=== PATIENT | male | born 1990 | race Hispanic/Latino ===

== ENCOUNTER 2021-01-08 15:24 | Inpatient (IN) | payer OTHER ==
[~2021-01-08] VITALS: Ht 182.9 cm; Wt 159.0 kg
[~2021-01-08 15:24] MED LIST: CLINDAMYCIN300 MG PO; DICLOXACILL250 MG PO; HYDROXYZ HCL25 MG PO; MEDDOSEPAK OR
--- NOTE | 2021-01-08 16:00 | NUR ---
PATIENT IN ROOM AWAITNG LAB AND RADIOLOGY RESULTS
[2021-01-08 16:22] LABS: HEMATOCRIT 47.4 % (39.0-50.0); HEMOGLOBIN 14.8 g/dl (14.0-18.0); IMMATURE GRANULOCYTES 0.4 % (0.0-5.0); MEAN CELL VOLUME 84.2 fL CALC (80.0-100.0); MEAN CORPUSCULAR HGB 26.3 pG CALC (26.0-32.0); MEAN CORPUSCULAR HGB CONC 31.2 g/dL CAL (32.0-36.0); NEUT# 3.45 thou/uL (1.82-7.42); RED BLOOD COUNT 5.63 mill/uL (4.70-6.10); RED CELL DISTRI WIDTH 13.3 % (11.5-15.5)
[2021-01-08 16:37] LABS: ALBUMIN 4.5 g/dL (3.2-5.0); ALKALINE PHOSPHATASE 64 u/l (38-126); ANION GAP 12 (6-22 (CALC)); BILIRUBIN, TOTAL 0.7 mg/dL (0.0-1.4); BUN 9 mg/dL (9-20); BUN/CREATININE RATIO 12 (12-20 (CALC)); CARBON DIOXIDE 29 mmol/l (22-30); CHLORIDE 97 mmol/l (95-108); CREATININE 0.7 mg/dL (0.7-1.3); GFR > 60 ML/MIN (>=60 (CALC)); GFR FOR AFR.AMER. > 60 ML/MIN (>=60 (CALC)); LIPASE 28 u/l (23-300); POTASSIUM 4.1 mmol/l (3.5-5.1); SGOT/AST 47 u/l (17-59); SODIUM 134 mmol/l (137-146)
[2021-01-08 16:40] LABS: D-DIMER 0.44 mg/L (0.19-0.60)
[2021-01-08 16:43] LABS: ACT PARTIAL THROMBO TIME 29.2 SECONDS (20.0-32.5); INTERNATIONAL NORMALIZED RATIO 1.1 RATIO (0.7-1.3); PROTHROMBIN TIME 10.9 SECONDS (9.0-12.5)
--- NOTE | 2021-01-08 17:00 | NUR ---
Reassessment of patient completed. No distress noted.
--- NOTE | 2021-01-08 17:40 | NUR ---
PATIENT RESTING DENIES ANY NEEDS CURRENTLY
--- NOTE | 2021-01-08 18:16 | NUR ---
[facility]
--- NOTE | 2021-01-08 18:17 | NUR ---
REPORT REC FROM Gertrudis MUIR RN
--- NOTE | 2021-01-08 18:20 | NUR ---
PATIENT TRANSPORTED TO [facility] VIA STRETCHER
[2021-01-08 18:22] VITALS: BP 123/73
--- NOTE | 2021-01-08 18:22 | NUR ---
PT ARRIVED VIA STRETCHER WITH O2 VIA NC @2L. A&O X4. CURRENTLY 95%, O2 TITRATED TO 1L. WILL CONTINUE TO CLOSELY MONITOR FOR OXYGEN TITRATION NEEDS. CLEAR DIMINSHED BREATH SOUNDS. IS DEVICE TO BE GIVEN TO PT, EDUCATION GIVEN ON ITS IMPORTANCE. ORIENTED PT TO ROOM . CALL LIGHT WITHIN REACH.
--- NOTE | 2021-01-08 20:00 | NUR ---
PT ASSESSMENT AND ADMISSION COMPLETED WITH PT, SEE DOCUMENTATION. PT RESTING QUITLY AT THIS TIME IN BED. PT REMAINS ON ISOLATION DUE TO COVID POSITIVE STATUS. NO COMPLICATIONS NOTED, NO COMPLAINTS VOICED. WILL MONITOR
[2021-01-09] VITALS: BP 139/71
--- NOTE | 2021-01-09 | NUR ---
PT RESTING QUIETLY AT THIS TIME. NO COMPLAINTS VOICED. SAFETY PRECAUTIONS IN PLACE, WILL CONTINUE TO MONITOR
[2021-01-09 00:39] LABS: URINE BILIRUBIN - DIPSTICK NEGATIVE (NEGATIVE); URINE BLOOD DIPSTICK NEGATIVE (NEGATIVE); URINE COLOR YELLOW; URINE GLUCOSE - DIPSTICK NEGATIVE (NEGATIVE); URINE KETONE NEGATIVE (NEGATIVE); URINE LEUK ESTERASE NEGATIVE (NEGATIVE); URINE PROTEIN - DIPSTICK 30 mg/dL (NEG-TRACE); URINE SPECIFIC GRAVITY 1.025
[2021-01-09 00:48] LABS: URINE NITRITE - DIPSTICK NEGATIVE (Negative)
[2021-01-09 00:51] LABS: URINE BACTERIA FEW hpf; URINE EPITHELIAL CELLS FEW EPI/hpf (0-FEW); URINE MUCUS MODERATE hpf (NONE-FEW); URINE RBC 0-2 RBC/hpf (0-5)
--- NOTE | 2021-01-09 03:49 | NUR ---
PT RESTING IN HIS BED WHILE ON HIS CELL PHONE. BREATHING EVEN AND UNLABORED. NO S/S OF DISTRESS NOTED. NO COMPLAINTS VOICED. CONTINUES TO DENY ANY PAIN. SAFETY PRECAUTIONS IN PLACE. BED IN LOWEST POSITION, CALL LIGHT WITHIN REACH. WILL MONITOR
[2021-01-09 04:00] VITALS: BP 114/60
[2021-01-09 05:46] LABS: HEMATOCRIT 47.4 % (39.0-50.0); HEMOGLOBIN 14.6 g/dl (14.0-18.0); IMMATURE GRANULOCYTES 0.3 % (0.0-5.0); MEAN CELL VOLUME 85.1 fL CALC (80.0-100.0); MEAN CORPUSCULAR HGB 26.2 pG CALC (26.0-32.0); MEAN CORPUSCULAR HGB CONC 30.8 g/dL CAL (32.0-36.0); NEUT# 1.89 thou/uL (1.82-7.42); RED BLOOD COUNT 5.57 mill/uL (4.70-6.10); RED CELL DISTRI WIDTH 13.3 % (11.5-15.5)
[2021-01-09 06:07] LABS: ANION GAP 15 (6-22 (CALC)); BUN 12 mg/dL (9-20); BUN/CREATININE RATIO 22 (12-20 (CALC)); C-REACTIVE PROTEIN 6.6 mg/dL (0-0.9); CARBON DIOXIDE 25 mmol/l (22-30); CHLORIDE 100 mmol/l (95-108); CREATININE 0.6 mg/dL (0.7-1.3); GFR > 60 ML/MIN (>=60 (CALC)); GFR FOR AFR.AMER. > 60 ML/MIN (>=60 (CALC)); SODIUM 135 mmol/l (137-146)
--- NOTE | 2021-01-09 07:20 | NUR ---
REPORT RECEIVED FROM CLIFF COTTRELL. PT SITTING UP IN BEDSIDE CHAIR; ALERT AND ORIENTED X 3. DENIES PAIN. RESPIRATIONS EVEN AND UNLABORED ON OXYGEN 1L VIA NC; REPORTS EXERTIONAL SOB; SPO2 92% AT THIS TIME; LUNGS ARE VERY DIMINISHED. PT REPORTS THAT HE FEELS BETTER TODAY AND WOKE UP WITH MORE ENERGY THAN YESTERDAY. TELE ON. IV SITE APPEARS HEALTHY AND FLUSHES. POC REVIEWED; PT ENCOURAGED TO VERBALIZE CONCERNS. STATES UNDERSTANDING. SAFETY MEASURES IN PLACE. CALL LIGHT WITHIN REACH.
[2021-01-09 08:01] VITALS: BP 137/83
[2021-01-09 10:52] VITALS: BP 125/81
--- NOTE | 2021-01-09 10:52 | NUR ---
PT EDUCATED ON NEW MEDICATIONS INCLUDING ROCEPHIN, ZITHROMAX, DECADRON, LOVENOX, AND ROBITSSIN; STATES UNDERSTANDING. REMAINS ON 1L; SPO2 DECREASES TO 87% WHEN LAYING; INCREASED BACK TO 93% WHEN ENCOURAGED TO SIT UP AND COUGH. WILL CONTINUE TO MONITOR.
--- NOTE | 2021-01-09 12:28 | NUR ---
TELEMETRY REMOVED; ORDER RECEIVED TO DISCONTINUE. PT WAS SINUS RHYTHM SO FAR THIS SHIFT.
[2021-01-09 14:53] VITALS: BP 128/79
--- NOTE | 2021-01-09 15:53 | NUR ---
PT RESTING IN BED SEMI FOWLERS; ALERT AND ORIENTED. NO REQUESTS OR CONCERNS AT THIS TIME. ENCOURAGED USE OF INCENTIVE SPIROMETER. CALL LIGHT WITHIN REACH.
[2021-01-09 19:14] VITALS: BP 122/76
--- NOTE | 2021-01-10 00:51 | NUR ---
PATIENT RESTING IN BED FLAT WITH EYES CLOSED. NO COMPLAINTS VERBALIZED. CONTINUES ON AIRBORN/CONTACT PRECAUTIONS FOR +COVID-19. BED IN LOW POSITION. CALL LIGHT WITHIN REACH.
[2021-01-10 05:19] VITALS: BP 138/66
--- NOTE | 2021-01-10 06:33 | NUR ---
PATIENT HAD FEVER THIS A.M. 100.1. OTTO AMBROSIO NOTIFIED. NEW ORDERS RECEIVED. TYLENOL 650 MG PO GIVEN.
[2021-01-10 06:48] LABS: HEMATOCRIT 47.9 % (39.0-50.0); HEMOGLOBIN 14.7 g/dl (14.0-18.0); MEAN CELL VOLUME 85.4 fL CALC (80.0-100.0); MEAN CORPUSCULAR HGB 26.2 pG CALC (26.0-32.0); MEAN CORPUSCULAR HGB CONC 30.7 g/dL CAL (32.0-36.0); RED BLOOD COUNT 5.61 mill/uL (4.70-6.10); RED CELL DISTRI WIDTH 13.4 % (11.5-15.5)
[2021-01-10 07:15] LABS: ANION GAP 12 (6-22 (CALC)); BUN 13 mg/dL (9-20); BUN/CREATININE RATIO 20 (12-20 (CALC)); CARBON DIOXIDE 28 mmol/l (22-30); CHLORIDE 98 mmol/l (95-108); CREATININE 0.6 mg/dL (0.7-1.3); GFR > 60 ML/MIN (>=60 (CALC)); GFR FOR AFR.AMER. > 60 ML/MIN (>=60 (CALC)); MAGNESIUM 2.1 mg/dL (1.6-2.3); POTASSIUM 4.4 mmol/l (3.5-5.1); SODIUM 134 mmol/l (137-146)
--- NOTE | 2021-01-10 07:25 | NUR ---
REPORT RECEIVED FROM OTTONIEL DAILEY. PT RESTING IN BED SEMI FOWLERS WITH EYES CLOSED AND NO SIGNS OF DISTRESS; AWAKENS TO VERBAL STIMULI; DROWSY AND ORIENTED X 3. DENIES PAIN. RESPIRATIONS EVEN AND UNLABORED ON OXYGEN 1L VIA NC; SPO2 92%; LUNGS DIMINISHED. TEMPERATURE 100.1; ROOM IS WARM, BLANKET REMOVED. SCHEDULED ROBITUSSIN HELD DUE TO SLEEPING AND NO COUGH. POC REVIEWED; PT ENCOURAGED TO VERBALIZE CONCERNS. STATES UNDERSTANDING. SAFETY MEASURES IN PLACE. CALL LIGHT WITHIN REACH.
[2021-01-10 07:28] VITALS: BP 128/74
--- NOTE | 2021-01-10 11:56 | NUR ---
PT CONTINUES TO REST IN BED; STATES THAT HE DIDNT SLEEP WELL LAST NIGHT AND IS MORE TIRED TODAY. SKIN IS WARM AND MOIST; TEMP 98.8; ROOM COOLED MUCH POSSIBLE BUT REMAINS WARM; FAN PROVIDED. SPO2 91% ON 1L VIA NC; RESPIRATIONS EVEN AND UNLABORED. INDEPENDENT IN ROOM. CALL LIGHT WITHIN REACH.
--- NOTE | 2021-01-10 12:34 | NUR ---
PLACED CALL LIGHT TO INFORM NURSE OF NOSE BLOOD; SCANT AMOUNT OF BRIGHT RED BLOOD RIGHT RIGHT NARE; COOL CLOTH PROVIDED AND BLEED QUICKLY RESOLVED. PT REPORTS THAT HE GETS NOSE BLEEDS OCCAIONALLY. , TAJ, UPDATED OVER TELEPHONE.
[2021-01-10 15:26] VITALS: BP 140/89
--- NOTE | 2021-01-10 17:28 | NUR ---
SOB WITH EXERTION OF SHOWER; SPO2 DECREASED TO 85%; OXYGEN TITRATED UP TO 2L VIA NC. ZITHROMAX NOW INFUSING. PT ENCOURAGED TO USE INCENTIVE SPIROMETER; DEMONSTRATES UNDERSTANDING OF USE. WILL CONTINUE TO MONITOR.
[2021-01-10 19:38] VITALS: BP 133/70
--- NOTE | 2021-01-10 20:00 | NUR ---
PT SITTING UP DANGLING LEGS AND WATCHING TV, EXPERIENCING INCREASED COUGHING. RISK ASSESSMENT CONSULTANT INFORMED NURSE OF SLIGHT FEVER. PT DID NOT EAT DINNER DUE TO NOT FEELING WELL AND INCREASED COUGHING. ENCOURAGED FLUIDS. WILL ADMINISTER TYLENOL FOR FEVER AND EDUCATED PT ABOUT USE OF ABUTEROL INHALER WHEN SOB. WILL CONITNUE TO MONITOR. BELONGINGS AND CALL LIGHT WITHIN REACH.
--- NOTE | 2021-01-11 | NUR ---
PT RESTING WITH EYES CLOSED WITHOUT S/S OF DISTRESS. PT'S BROUGHT PT SOME HOT TEA EARLIER. PT SEEMS TO BE DOING BETTER AFTER ADMINISTRATION OF ROBITUSSIN AND INHALER. WILL CONTINUE TO MONITOR. CALL LIGHT AND PT BELONGINGS WITHIN REACH.
[2021-01-11 04:00] VITALS: BP 133/82
--- NOTE | 2021-01-11 04:00 | NUR ---
COMMERCIAL BAKER HELPER ASSESSED VITALS AND PT O2 WAS VERY LOW AND TOOK SEVERAL MINUTES TO RAISE AFTER INCREASING OXYGEN FROM 2L TO 4L. NURSE WENT TO ASSESS PT A SHORT TIME LATER AND PT IS LAYING SIDE PRONE AND HIS O2 HAD DECREASED AGAIN TO 82%, INCREASED O2 TO 5L AND CONTACTED RT FOR EVALUATION. PT ALSO HAS BEEN EXPERIENCING NOSE BLEEDS WHICH COULD POSSIBLY BENEFIT FROM HUMIDIFIED AIR. WILL CONTINUE TO MONITOR. ENCOURAGING INCENTIVE SPIROMETER AND ABUTEROL INHALER.
--- NOTE | 2021-01-11 04:00 | NUR ---
PT SLEEPING WITHOUT S/S OF DISCOMFORT. CALL LIGHT AND BELONGINGS WITHIN REACH. WILL CONTINUE TO MONITOR.
[2021-01-11 05:39] LABS: HEMATOCRIT 46.6 % (39.0-50.0); HEMOGLOBIN 14.1 g/dl (14.0-18.0); IMMATURE GRANULOCYTES 0.6 % (0.0-5.0); MEAN CELL VOLUME 85.2 fL CALC (80.0-100.0); MEAN CORPUSCULAR HGB 25.8 pG CALC (26.0-32.0); MEAN CORPUSCULAR HGB CONC 30.3 g/dL CAL (32.0-36.0); NEUT# 8.01 thou/uL (1.82-7.42); RED BLOOD COUNT 5.47 mill/uL (4.70-6.10); RED CELL DISTRI WIDTH 13.4 % (11.5-15.5)
--- NOTE | 2021-01-11 06:00 | NUR ---
PT DOING MUCH BETTER AFTER INCREASED O2 AND HUMIDIFICATION. PT MAY HAVE UNDERLYING SLEEP APNEA HIS O2 LEVELS DROP WHILE SLEEPING. CALL LIGHT AND BELONGINGS WITHIN REACH.
[2021-01-11 06:03] LABS: ALKALINE PHOSPHATASE 49 u/l (38-126); ANION GAP 14 (6-22 (CALC)); BILIRUBIN, TOTAL 0.8 mg/dL (0.0-1.4); BUN 12 mg/dL (9-20); BUN/CREATININE RATIO 18 (12-20 (CALC)); CARBON DIOXIDE 29 mmol/l (22-30); CHLORIDE 96 mmol/l (95-108); CREATININE 0.7 mg/dL (0.7-1.3); GFR > 60 ML/MIN (>=60 (CALC)); GFR FOR AFR.AMER. > 60 ML/MIN (>=60 (CALC)); POTASSIUM 4.1 mmol/l (3.5-5.1); SGOT/AST 35 u/l (17-59); SODIUM 134 mmol/l (137-146); TOTAL PROTEIN 7.7 g/dL (6.3-8.2)
[2021-01-11 06:19] LABS: C-REACTIVE PROTEIN 14.8 mg/dL (0-0.9)
--- NOTE | 2021-01-11 06:55 | NUR ---
REPORT RECEIVED FROM OTTONIEL SALINAS
--- NOTE | 2021-01-11 08:10 | NUR ---
PT RESTING IN RECLINER,A&O X3;VS OBTAINED AND ASSESSMENT COMPLETED;PT DENIES ANY CURRENT PAIN OR DISCOMFORTS,PAIN SCALE AND REPORTING EDUCATED;RESPIRATIONS SHALLOW ON O2 @ 5L VIA NC,DIMINISHED LUNG SOUNDS NOTED;ABDOMEN DISTENDED/SOFT ON PALPATION AND ACTIVE IN ALL 4 QUADRANTS;WEAK PEDAL PULSES;SKIN INTACT;#20G TO RAC FLUSHED AND PATENT, ABX STARTED AT THIS TIME PER ORDER;PT REMAINS IN AIR/CONTACT PRECAUTIONS DUE TO COVID19 DX;PT DENIES ANY ADDITIONAL NEEDS AT THIS TIME;ENCOURAGED TO CALL FOR ASSISTANCE IF NEEDED;FALL PRECAUTIONS IN PLACE WITH CALL LIGHT IN REACH;WILL CONTINUE TO MONITOR
[2021-01-11 08:20] VITALS: BP 117/79
--- NOTE | 2021-01-11 11:30 | NUR ---
PT RESTING IN SEMI FOWLERS POSITION, ENCOURAGED TO LAY PRONE AT THIS TIME;RESPIRATIONS SHALLOW ON O2 @ 5L VIA NC, O2 SATS 92%;PT DENIES ANY CURRENT PAIN OR DISCOMFORTS;IV SITE PATENT;PT ENCOURAGED TO CALL FOR ASSISTANCE IF NEEDED;CALL LIGHT IN REACH;WILL CONTINUE TO MONITOR
--- NOTE | 2021-01-11 11:39 | NUR ---
AT BEDSIDE DISCUSSING POC.
[2021-01-11 15:00] VITALS: BP 146/85
--- NOTE | 2021-01-11 15:50 | NUR ---
PT RESTING IN SEMI FOWLERS POSITION;RESPIRATIONS SHALLOW ON O2 @ 5L VIA NC;PT DENIES ANY CURRENT PAIN OR DISCOMFORTS;IV SITE TO RAC PATENT;PT ENCOURAGED TO CALL FOR ASSISTANCE IF NEEDED;CALL LIGHT IN REACH;WILL CONTINUE TO MONITOR
[2021-01-11 20:04] VITALS: BP 127/73
--- NOTE | 2021-01-11 22:43 | NUR ---
PATIENT CURRENTLY RESTING WITH EYES CLOSED. RESPIRATIONS UNLABORED ON 5L VIA N/C. DENIES PAIN. MEDICATION COMPLIANT. BED IN LOW POSITION. CALL LIGHT WITHINR REACH.
[2021-01-12 04:09] VITALS: BP 103/53
[2021-01-12 05:06] LABS: HEMATOCRIT 46.9 % (39.0-50.0); HEMOGLOBIN 14.3 g/dl (14.0-18.0); IMMATURE GRANULOCYTES 1.6 % (0.0-5.0); MEAN CELL VOLUME 85.7 fL CALC (80.0-100.0); MEAN CORPUSCULAR HGB 26.1 pG CALC (26.0-32.0); MEAN CORPUSCULAR HGB CONC 30.5 g/dL CAL (32.0-36.0); NEUT# 5.58 thou/uL (1.82-7.42); RED BLOOD COUNT 5.47 mill/uL (4.70-6.10); RED CELL DISTRI WIDTH 13.7 % (11.5-15.5)
[2021-01-12 05:26] LABS: ALBUMIN 3.7 g/dL (3.2-5.0); ALKALINE PHOSPHATASE 43 u/l (38-126); ANION GAP 13 (6-22 (CALC)); BILIRUBIN, TOTAL 0.7 mg/dL (0.0-1.4); BUN 15 mg/dL (9-20); BUN/CREATININE RATIO 24 (12-20 (CALC)); CARBON DIOXIDE 26 mmol/l (22-30); CHLORIDE 100 mmol/l (95-108); CREATININE 0.6 mg/dL (0.7-1.3); GFR > 60 ML/MIN (>=60 (CALC)); GFR FOR AFR.AMER. > 60 ML/MIN (>=60 (CALC)); POTASSIUM 4.4 mmol/l (3.5-5.1); SGOT/AST 31 u/l (17-59); SODIUM 135 mmol/l (137-146); TOTAL PROTEIN 7.4 g/dL (6.3-8.2)
--- NOTE | 2021-01-12 07:00 | NUR ---
PT REPORT RECEIVED FROM NIGHT NURSEASIM.
[2021-01-12 08:00] VITALS: BP 142/73
--- NOTE | 2021-01-12 08:00 | NUR ---
PT VITALS WERE OBTAINED;PT O2 SAT WAS AT 86% ON O2 @5L VIA NC WITH HUMIDIFIED AIR;PT HAD JUST BEEN UP AND AMBULATED TO CHAIR, PT EXPRESSED EXERTIONAL SOB WELL; O2 WAS TITRATED TO 6L;O2 SATS WERE CHECKED AGAIN AND O2 SAT WAS UP TO 97%;O2 TITRATED BACK DOWN TO 5L AFTER PT RESTED;WILL CONTINUE TO MONITOR.
--- NOTE | 2021-01-12 08:00 | NUR ---
PT WAS FOUND SITTING UP IN BEDSIDE CHAIR;PT IS A&OX3;VS AND ASSESSMENT WERE COMPLETED;PT 02 SAT WAS AT 86% ON O2 @5L VIA NC WITH HUMIDIFIED AIR;PT HAD JUST BEEN UP AND AMBULATED TO CHAIR, PT EXPRESSED EXERIONAL SOB WELL;O2 WAS TITRATED TO 6L;O2 SATS WERE CHECKED AGAIN AND O2 SAT WAS UP TO 97%;O2 TITRATED BACK DOWN TO 5L AFTER PT RESTED;HEART SOUNDS ARE REGULAR IN RATE AND RHYTHM;LUNG SOUNDS ARE DIMINISHED IN ALL LOBES;RESPIRATIONS ARE LABORED ON O2@5L;#20G IV IN RAC IS SL, PATENT AND FREE OF COMPLICATIONS AT THIS TIME;SAFETY PRECAUTIONS IN PLACE;CALL LIGHT WITHIN REACH;WILL CONTINUE TO MONITOR.
--- NOTE | 2021-01-12 12:00 | NUR ---
PT WAS FOUND RESTING IN BED;PT HAS NO REPORTS OF PAIN AT THIS TIME;O2@5L VIA NC IS IN PLACE;SAFETY PRECAUTIONS IN PLACE;CALL LIGHT WITHIN REACH;WILL CONTINUE TO MONITOR.
[2021-01-12 15:07] VITALS: BP 144/64
--- NOTE | 2021-01-12 16:00 | NUR ---
PT WAS FOUND RESTING IN BED;PT HAS NO REPORTS OF PAIN AT THIS TIME;#20G IV IN RAC IS SL, PATENT AND FREE OF COMPLICATIONS;O2@5L VIA NC IS IN PLACE;SAFETY PRECAUTIONS IN PLACE;CALL LIGHT WITHIN REACH;WILL CONTINUE TO MONITOR.
--- NOTE | 2021-01-12 19:06 | NUR ---
REPORT FROM REED ALCAZAR. ASSUMED PT CARE.
--- NOTE | 2021-01-12 19:15 | NUR ---
PT NOTED SITTING UP IN BED WATCHING TV. A&OX4. NO APPARENT DISTRESS NOTED. RESPIRATIONS EVEN AND UNLABORED. 02 @ 5L/M VIA NC. IS AT BEDSIDE PT DEMONSTRATED PROPER USE. IV SITE APPEARS HEALTHY, FLUSHED AT THIS TIME. PT DENIES ANY PAIN OR SOB. DISCUSSED POC AND SAFETY PRECAUTIONS. PT VERBALIZED UNDERSTANDING. NO CURRENT WANTS OR NEEDS NOTED. CALL LIGHT WITHIN REACH. WILL CONTINUE TO MONITOR.
[2021-01-12 19:45] VITALS: BP 112/66
--- NOTE | 2021-01-12 23:52 | NUR ---
PT RESTING IN BED WITH EYES CLOSED. NO APPARENT DISTRESS NOTED. RESPIRATIONS EVEN AND UNLABORED. 02 @ 5L/M VIA NC. CALL LIGHT WITHIN REACH. WILL CONTINUE TO MONITOR.
[2021-01-13 04:00] VITALS: BP 124/77
[2021-01-13 05:53] LABS: HEMATOCRIT 47.1 % (39.0-50.0); HEMOGLOBIN 14.6 g/dl (14.0-18.0); MEAN CORPUSCULAR HGB 26.4 pG CALC (26.0-32.0); NEUT# 7.42 thou/uL (1.82-7.42); RED BLOOD COUNT 5.54 mill/uL (4.70-6.10); RED CELL DISTRI WIDTH 13.5 % (11.5-15.5)
[2021-01-13 06:11] LABS: ALBUMIN 3.6 g/dL (3.2-5.0); ALKALINE PHOSPHATASE 39 u/l (38-126); ANION GAP 13 (6-22 (CALC)); BILIRUBIN, TOTAL 0.7 mg/dL (0.0-1.4); BUN 17 mg/dL (9-20); BUN/CREATININE RATIO 27 (12-20 (CALC)); C-REACTIVE PROTEIN 5.6 mg/dL (0-0.9); CARBON DIOXIDE 27 mmol/l (22-30); CHLORIDE 101 mmol/l (95-108); CREATININE 0.6 mg/dL (0.7-1.3); GFR > 60 ML/MIN (>=60 (CALC)); GFR FOR AFR.AMER. > 60 ML/MIN (>=60 (CALC)); POTASSIUM 4.5 mmol/l (3.5-5.1); SGOT/AST 30 u/l (17-59); SODIUM 136 mmol/l (137-146); TOTAL PROTEIN 7.5 g/dL (6.3-8.2)
--- NOTE | 2021-01-13 07:30 | NUR ---
PATIENT RESTING IN BED AT THIS TIME. RAILROAD DISPATCHER DONE SEE INTERVENITONS. LUNG AGUILERA ARE CLEAR IN UPPER LUNG AGUILERA AND DIMINISHED IN MIDDLE AND LOWER AGUILERA. PATIENT IS CURRENTLY ON 5 LITERS OF 02 AND STATED HE IS NOT SHORT OF BREATH AT THIS TIME. PATIENT EXHIBITS NO COUGHING AND STATED HE HAS NOT BEEN COUGHING MUCH. PATIENT STATED HE FELT "I SLEPT WELL" . SIDERAILS ARE UP X 2 CALL LIGHT AND PERSONAL ITEMS WITHIN REACH.
[2021-01-13 08:25] VITALS: BP 126/61
--- NOTE | 2021-01-13 11:48 | NUR ---
PATIENT RESTING UP IN CHAIR AT THIS TIME DENEIS ANY NEEDS O2 REMAINS ON AT 5 LITERS SIDERAILS ARE UP X 2 CALL LIGHT IS WITHIN REACH.
[2021-01-13 15:34] VITALS: BP 138/86
--- NOTE | 2021-01-13 15:43 | NUR ---
PATIENT LAYING IN BE WATCHING TV DENEIES ANY PAIN OR NEED FOR COUGH MEDICATION. PATIENT STATED HE HASN'T "HAD MUCH OF A COUGH AT THIS TIME". PATIENT SIDERAILS ARE UP X2 CALL LIGHT IS WITHIN REACH.
[2021-01-13 19:00] VITALS: BP 121/79
--- NOTE | 2021-01-13 19:45 | NUR ---
PT REMAINS IN ISOLATION D/T POSITIVE COVID TEST. BREATHING IS EVEN AND UNLABORED AT THIS TIME. SLIGHT EXPIRATORY WHEEZE NOTED ON AUSCULTATION. LUNGS DIMINSHED IN BASES. ASSESMENT COMPLETED, PLEASE SEE DOCUMENTATION. PT IS VERY INDEPENDENT. O2 REMAINS VIA NC @ 5L. SAFETY PRECAUTIONS IN PLACE, BED IN LOWEST POSITION, CALL LIGHT WITHIN REACH. WILL MONITOR
--- NOTE | 2021-01-14 00:55 | NUR ---
PT RESTING QUIETLY IN BED WITH HIS YES CLOSED. PT REMAINS ON THE ISOLATION WING. NO COMPLAINTS VOICED AT THIS TIME. NO S/S OF DISTRESS NOTED. PT REMAINS ON 5L OF OXYGEN VIA NC. O2 SATURATION REMAINS WNL. BREATHING EVEN AND UNLABORED. WILL MONITOR FOR ANY S/S OF DISTRESS OR COMPLICATIONS
[2021-01-14 04:00] VITALS: BP 126/74
--- NOTE | 2021-01-14 04:30 | NUR ---
PT RESTING COMFORTABLY AT THIS TIME. NO COMPLAINTS VOICED. DENIES PAIN. DRY NON-PRODUCTIVE COUGH CONTINUES. PT SHOWS NO S/S OF DISTRESS. BREATHING EVEN AND UNLABORED. PT REMAINS ON ISOLATION UNIT D/T COVID DIAGNOSIS. SAFETY PRECAUTIONS IN PLACE, BED IN LOWEST POSITION, CALL LIGHT WITHIN REACH. WILL CONTINUE TO MONITOR.
[2021-01-14 05:40] LABS: HEMATOCRIT 46.8 % (39.0-50.0); HEMOGLOBIN 14.5 g/dl (14.0-18.0); IMMATURE GRANULOCYTES 2.1 % (0.0-5.0); MEAN CELL VOLUME 85.6 fL CALC (80.0-100.0); MEAN CORPUSCULAR HGB 26.5 pG CALC (26.0-32.0); NEUT# 6.12 thou/uL (1.82-7.42); RED BLOOD COUNT 5.47 mill/uL (4.70-6.10)
[2021-01-14 06:05] LABS: ALBUMIN 3.6 g/dL (3.2-5.0); ALKALINE PHOSPHATASE 39 u/l (38-126); ANION GAP 13 (6-22 (CALC)); BILIRUBIN, TOTAL 0.6 mg/dL (0.0-1.4); BUN 15 mg/dL (9-20); BUN/CREATININE RATIO 24 (12-20 (CALC)); CARBON DIOXIDE 26 mmol/l (22-30); CHLORIDE 102 mmol/l (95-108); CREATININE 0.6 mg/dL (0.7-1.3); GFR > 60 ML/MIN (>=60 (CALC)); GFR FOR AFR.AMER. > 60 ML/MIN (>=60 (CALC)); POTASSIUM 4.3 mmol/l (3.5-5.1); SGOT/AST 41 u/l (17-59); SODIUM 136 mmol/l (137-146); TOTAL PROTEIN 7.4 g/dL (6.3-8.2)
--- NOTE | 2021-01-14 07:15 | NUR ---
PATIENT RESTING IN BED AT THIS TIME. DENIES ANY PAIN AT THIS TIME NO COUGHING NOTED. 02 REMAINS ON AT 5 LITERS. TOW BAR DRIVER DONE SEE INTERVENTIONS. LUNG AGUILERA IN LOWER BASES REMAIN DIMINSHED AND UPPER AGUILERA ARE CLEAR. SIDE RAILS ARE UP X 2 CALL LIGHT IS WITHIN REACH . PATIENT DENIES ANY NEEDS AT THIS TIME.
[2021-01-14 08:00] VITALS: BP 135/62
--- NOTE | 2021-01-14 11:06 | NUR ---
SIX MINUTE WALK TEST DONE AT THIS TIME. OXYGEN REMOVED FOR 30 MIN. AND SPO2 WAS 90%. PATIENT THAN WALKED FOR 5 MINUTES AND SPO2 WENT DOWN TO 82%. OXYGEN REPLACED AT 5 LITERS AND PATIENT AMBULATED AND SPO2 WENT UP TO 92% AND FINAL REST SPO2 WENT TO 94% AT 5 LITERS. PROVIDER MADE AWARE OF FINDING AND JACKI IN CASE MANAGEMENT NOTIFIED OF FINDING.
--- NOTE | 2021-01-14 11:43 | NUR ---
PATIENT RESTING IN BED AT THIS TIME 02 REMAINS ON AT 5 LITERS. PATIENT DENIES ANY PAIN OR SHORTNESS OF BREATH. SIDERAILS ARE UP X 2 CALL LIGHT IS WITHIN REACH.
[2021-01-14 15:20] VITALS: BP 142/76
--- NOTE | 2021-01-14 16:03 | NUR ---
PATIENT RESTING IN BED AT THIS TIME. PATIENT DENIES ANY NEEDS CURRENTLY. O2 REMAINS ON AT 5 LITERS. SIDERAILS ARE UP X 2 CALL LIGHT AND PERSONAL ITEMS WITHIN REACH .
[2021-01-14 18:56] VITALS: BP 134/69
--- NOTE | 2021-01-14 19:23 | NUR ---
PT IS SITTING UP IN RECLINER CHAIR WATCHING TV AND TALKING ON CELL PHONE. REPORTS FEELING MILD SOB, O2 SAT 89% ON 5L AT THIS TIME. TITRATED UP TO 6L FOR A O2 SAT OF 91% MONITORING AT THIS TIME TO ASSESS THAT PT IS MAINTAINING OXYGEN SAT AT THIS LEVEL OF 02. NO DISTRESS NOTED. PT DENIES PRODUCTIVE COUGH. EDUCATED PT ON RELAXED BREATHING AND IS USAGE, VERBALIZED UNDERSTANDING.
--- NOTE | 2021-01-14 19:28 | NUR ---
PT O2 SAT LEVELS STEADY @ 92% ON 6L NC 02.
--- NOTE | 2021-01-14 21:32 | NUR ---
PT MEDICATED ORDERS PROVIDE. IV FLUSHED PATENT AT THIS TIME. PT DENIES ANY OTHER NEEDS, BUT WAS ENCOURAGED TO CALL NEEDS ARISE.
--- NOTE | 2021-01-15 01:55 | NUR ---
PT SLEEPING IN PRONE POSITION, OXYGEN SAT LEVEL STABLE @96% ON 6L. TITRATED DOWN TO 5L HOLDING STABLE AT 96%. PT DENIES ANY NEEDS AT THIS TIME.
--- NOTE | 2021-01-15 03:35 | NUR ---
PT SLEEPING, AWOKE TO MY CHECKING HIS OXYGEN SAT LEVELS, DENIES ANY NEEDS.
[2021-01-15 04:43] VITALS: BP 106/68
--- NOTE | 2021-01-15 04:54 | NUR ---
PT V/S ASSESSED, OXYGEN SAT LEVELS AT 95-97% ON 5L 02NC. TITRATED DOWN TO 4L AND PT I MAINTAINING >92%,
[2021-01-15 05:41] LABS: HEMATOCRIT 46.6 % (39.0-50.0); HEMOGLOBIN 14.2 g/dl (14.0-18.0); IMMATURE GRANULOCYTES 3.4 % (0.0-5.0); MEAN CELL VOLUME 85.7 fL CALC (80.0-100.0); MEAN CORPUSCULAR HGB 26.1 pG CALC (26.0-32.0); MEAN CORPUSCULAR HGB CONC 30.5 g/dL CAL (32.0-36.0); NEUT# 5.72 thou/uL (1.82-7.42); RED BLOOD COUNT 5.44 mill/uL (4.70-6.10); RED CELL DISTRI WIDTH 13.2 % (11.5-15.5)
[2021-01-15 06:13] LABS: ALBUMIN 3.3 g/dL (3.2-5.0); ALKALINE PHOSPHATASE 39 u/l (38-126); ANION GAP 11 (6-22 (CALC)); BILIRUBIN, TOTAL 0.6 mg/dL (0.0-1.4); BUN 13 mg/dL (9-20); BUN/CREATININE RATIO 22 (12-20 (CALC)); C-REACTIVE PROTEIN 4.1 mg/dL (0-0.9); CARBON DIOXIDE 28 mmol/l (22-30); CHLORIDE 101 mmol/l (95-108); CREATININE 0.6 mg/dL (0.7-1.3); GFR > 60 ML/MIN (>=60 (CALC)); GFR FOR AFR.AMER. > 60 ML/MIN (>=60 (CALC)); POTASSIUM 4.4 mmol/l (3.5-5.1); SGOT/AST 41 u/l (17-59); SODIUM 135 mmol/l (137-146)
--- NOTE | 2021-01-15 07:00 | NUR ---
PT REPORT RECEIVED FROM NIGHT NURSEDAE
--- NOTE | 2021-01-15 08:00 | NUR ---
PT WAS FOUND RESTING IN BED;PT IS A&O X3;VS AND ASSESSMENT WERE COMPLETED;PT HAS NO REPORTS OF PAIN AT THIS TIME;HEART SOUNDS ARE REGULAR IN RATE AND RHYTHM;LUNG SOUNDS ARE DIMINSHED IN ALL LOBES;RESPIRATIONS ARE EVEN AND UNLABORED ON O2@4L VIA NC;PT DOES REPORT SOME EXERTIONAL SOB;#22G IN LH IS SL, PATENT AND FREE OF COMPLICATIONS AT THIS TIME;SAFETY PRECAUTIONS IN PLACE;CALL LIGHT WITHIN REACH;WILL CONTINUE TO MONITOR.
[2021-01-15] MEDS ORDERED: DEXAMETHASON6 MG PO (11:11)
[2021-01-15] MEDS ORDERED: ZITHROMAX250 MG PO (11:11)
[2021-01-15] MEDS ORDERED: ASPIRIN REGULA325 M1 PO (11:12)
[2021-01-15] MEDS ORDERED: ALBUTEROL108 MCG/AC IN (11:19)
--- NOTE | 2021-01-15 12:00 | NUR ---
PT WAS FOUND RESTING IN BED IN SEMI-FOWLERS POSITION;PT HAS NO REPORTS OF PAIN AT THIS TIME;O2@4L VIA NC IS IN PLACE;SAFETY PRECAUTIONS IN PLACE;CALL LIGHT WITHIN REACH;WILL CONTINUE TO MONITOR.
--- NOTE | 2021-01-15 16:00 | NUR ---
PT WAS FOUND RESTING IN BED;O2@4L VIA NC IS IN PLACE;#22G IV IN IS SL,PATENT AND FREE OF COMPLICATIONS AT THIS TIME;SAFETY PRECAUTIONS IN PLACE;CALL LIGHT WITHIN REACH;WILL CONTINUE TO MONITOR.
[2021-01-15 16:30] VITALS: BP 136/65
--- NOTE | 2021-01-15 17:56 | NUR ---
Discharge instructions given. Patient verbalizes understanding of same. Discharged in stable condition via Wheelchair to Home with family. All belongings sent with pt. PT WAS GIVEN DISCHARGE PACKET;DISCHARGE INSTRUCTIONS AND MEDICATIONS WERE EXPLAINED TO PT;PT EXPRESSED UNDERSTANDING AND HAD NO FURTHER QUESTIONS;SIGNATURE OBTAINED;IV WAS REMOVED WITHOUT COMPLICATIONS AND CATHETER INTACT;PT WILL BE TRANSPORTED HOME ON 02. PT WAS TRANSPORTED VIA WC TO [facility] IN STABLE CONDITION ACCOMPANIED BY STAFF; ;PT WAS TRANSPORTED HOME WITH O2@4L VIA NC;ALL PT BELONGINGS WERE SENT WITH PT;PT WILL BE TRANSPORTED HOME WITH FAMILY
--- NOTE | 2021-01-17 12:27 | NUR ---
Pneumonia post discharge follow up call completed today, 01/17/21. Pt. states he is doing pretty well. He has had no fever or chills. The shortness of breath is improving each day. Discharge medications were obtained and are being taken without difficulty. Pt. will make a follow up appt with PCP next week. No questions or concerns voiced by patient.
== END 2021-01-15 17:56 | disposition home or self-care (01) | DRG 177 ==
LOC: ED 15:24 → ED-I 17:05 → ED 17:17 → MS2 17:18
PROVIDERS: Nurse Practitioner; ADMIT Internal Medicine; ATTEND Internal Medicine
PROC: XW033E5 Introduction of Remdesivir Anti-infective into Peripheral Vein, Percutaneous Approach, New Technology Group 5 (ICD-10-PCS; principal; 2021-01-11)
DX: U07.1 COVID-19 (principal); J12.82 Pneumonia due to coronavirus disease 2019; R09.02 Hypoxemia
CPT/HCPCS: J1650